=== PATIENT | male | born 1965 | race Caucasian/White ===

== ENCOUNTER → 2017-05-13 | Outpatient (CLI) | payer BC, OTHER ==
[~2017-05-13] MED LIST: ASPIRIN 81M81 MG/TA2 PO; B-12 500 MCG PO; BACTRIM DS 8001 TAB PO; BETIMOL 0.5% OPH5 ML OP; BETIMOL 2.5 ML2.5 M1 OU; BRILINTA90 MG PO; CANA300T PO; CEFTIN500 MG PO; CEPHALEXIN500 M1 PO; CRESTOR40 MG PO; DUO-KAPS1 CAP PO; FLEXERIL5 MG PO; FLOMAX 0.40.4 MG/CAP PO; GLUCOPHAGE XR500 M1 PO; GLUCOPHAGE1000 MG PO; GRALISE300 MG; LEVAQUIN 5500 MG/TA1 PO; LEVEMIR100 U/ML SQ; LOPRESSOR 550 MG/TAB PO; LUMIGAN 2.5 ML2.5 M1; MULTI VITAMINS1 TAB PO; NAPROXEN EC375 MG PO; NO HOME MEDICATIONS; NORCO 325 MG-51 TAB PO; PERCOCET 325 MG1 TA2 PO; PRAVACHOL10 MG; PYRIDIUM 100MG100 MG PO; PYRIDIUM200 M1 PO; SENOKOT S 50 MG1 TAB PO; VIT B 12; XALATAN EYE DROPS OU; ZOFRAN ODT4 MG PO; [UNRECOGNIZED DRUG - OTHER]
== END ==
LOC: COL.RAD 15:37
DX: R16.2 Hepatomegaly with splenomegaly, not elsewhere classified (principal); N20.0 Calculus of kidney

== ENCOUNTER → 2017-05-18 | Outpatient (CLI) | payer BC, OTHER ==
[2017-05-18 09:31] LABS: AMYLASE 48 U/L (30-110); ANION GAP 12 mmol/L (7-16); BLOOD UREA NITROGEN 11 mg/dL (9-20); CALCIUM 8.7 mg/dL (8.4-10.2); CARBON DIOXIDE 25 mmol/L (22-30); CHLORIDE 105 mmol/L (98-107); CREATININE, serum 0.66 mg/dL (0.66-1.25); GLUCOSE 178 mg/dL (74-106); LIPASE 47 U/L (23-300); POTASSIUM 4.4 mmol/L (3.4-5.0); SODIUM 141 mmol/L (137-145)
[2017-05-18 09:42] LABS: TROPONIN-I < 0.012 ng/mL (0.000-0.034)
[2017-05-18 23:19] LABS: CKMB-SO 1.7 ng/mL (0.0-7.2)
== END ==
LOC: COL.VAS 07:50
PROVIDERS: Family Medicine
DX: I65.23 Occlusion and stenosis of bilateral carotid arteries (principal); R89.9 Unspecified abnormal finding in specimens from other organs, systems and tissues

== ENCOUNTER 2017-08-07 09:10 | Day surgery (SDC) | payer BC, OTHER ==
[~2017-08-07] VITALS: Ht 172.7 cm; Wt 131.3 kg
[2017-08-07] VITALS (8 sets, daily range): BP systolic 118–135; BP diastolic 71–79; PULSE 57–66; TEMP 97.5
[2017-08-07 09:48] LABS: MEAN CELL VOLUME 77 fl (80.0-100.0); MEAN CORPUSCULAR HEMOGLOBIN 23 pg (27.0-31.0); MEAN CORPUSCULAR HGB CONC 30 g/dl (33.0-37.0); MEAN PLATELET VOLUME 11.1 fl (7.4-10.4); PLATELET COUNT 268 K/mm3 (130-400); RED BLOOD COUNT 4.81 M/mm3 (4.20-5.60); REDCELL DISTRIBUTION WIDTH-CV 14.7 % (11.5-14.5); WHITE BLOOD COUNT 4.6 K/mm3 (4.8-10.8)
[2017-08-07 09:50] LABS: HEMOGLOBIN 11.1 g/dl (13.5-18.0)
[2017-08-07 10:01] LABS: PROTHROMBIN TIME 11.2 SECONDS (9.7-12.8)
[2017-08-07] MEDS ORDERED: ASPIRIN 81M81 MG/TA2 PO (10:03)
[2017-08-07 10:15] LABS: CALCIUM 8.8 mg/dL (8.4-10.2); CREATININE, serum 0.64 mg/dL (0.66-1.25)
== END 2017-08-07 16:36 | disposition home or self-care (01) ==
LOC: COL.CAR 09:10
PROVIDERS: Internal Medicine Interventional Cardiology
DX: R07.9 Chest pain, unspecified (principal); R06.02 Shortness of breath; I10 Essential (primary) hypertension; E78.5 Hyperlipidemia, unspecified; Z79.4 Long term (current) use of insulin; E11.40 Type 2 diabetes mellitus with diabetic neuropathy, unspecified; Z83.3 Family history of diabetes mellitus; Z82.3 Family history of stroke; Z82.49 Family history of ischemic heart disease and other diseases of the circulatory system
CPT/HCPCS: C1760; C1894; J2250; J3010; Q9967

== ENCOUNTER 2019-11-05 19:16 | Inpatient (IN) | payer BC ==
[~2019-11-05] VITALS: Ht 177.8 cm; Wt 118.1 kg
[2019-11-05 21:04] LABS: BASO % 0.3 % (0.0-2.0); GRAN # 7.8 (1.4-6.5); GRAN % 81.2 % (42.2-75.2); HEMOGLOBIN 10.8 g/dl (13.5-18.0); LYMPH # 0.7 (1.2-3.4); LYMPH % 7.3 % (20.0-51.0); MEAN CELL VOLUME 80 fl (80.0-100.0); MEAN CORPUSCULAR HEMOGLOBIN 25 pg (27.0-31.0); MEAN CORPUSCULAR HGB CONC 31 g/dl (33.0-37.0); MEAN PLATELET VOLUME 10.5 fl (7.4-10.4); MONO # 1.1 (0.1-0.6); MONO % 10.9 % (1.7-9.3); PLATELET COUNT 238 K/mm3 (130-400); RED BLOOD COUNT 4.41 M/mm3 (4.20-5.60); REDCELL DISTRIBUTION WIDTH-CV 15.1 % (11.5-14.5)
[2019-11-05 21:12] LABS: HEMATOCRIT 35.1 % (42.0-52.0)
[2019-11-05 21:37] LABS: ALBUMIN 3.8 gm/dL (3.5-5.0); BILIRUBIN,TOTAL 0.5 mg/dL (0.0-1.0); CALCIUM 8.7 mg/dL (8.4-10.2); CREATININE, serum 1.16 (0.66-1.25); POTASSIUM 3.4 mmol/L (3.4-5.0); TOTAL PROTEIN 7.3 gm/dL (6.4-8.2)
[2019-11-05] MEDS ORDERED: TOUJEO300 U/ML SQ (22:25)
[2019-11-05] MEDS ORDERED: JARDIANCE25 (22:25)
[2019-11-05] MEDS ORDERED: PRINIVIL5 MG PO (22:26)
[2019-11-05] MEDS ORDERED: FLOMAX 0.40.4 MG/CAP PO (22:27)
[2019-11-05] MEDS ORDERED: VITAMIN B COMPL1 SGL PO (22:27)
[2019-11-05] MEDS ORDERED: MULTIPLE VITAMI1 CAP PO (22:28)
[2019-11-05] MEDS ORDERED: PROFERRIN ES12 MG (22:28)
[2019-11-05] MEDS ORDERED: MASON NATURAL1200 MG PO (22:28)
[2019-11-05] MEDS ORDERED: TRILIPIX45 MG PO (22:30)
[2019-11-05 23:09] LABS: COLLECTION METHOD CLEAN CATCH
[2019-11-05 23:19] LABS: MUCOUS Present /lpf; PH 5 (5-8); URINE APPEARANCE Clear; URINE BACTERIA None Seen /hpf; URINE BILIRUBIN Negative (NEGATIVE); URINE BLOOD Negative (NEGATIVE); URINE COLOR Yellow; URINE GLUCOSE 1+ (NEGATIVE); URINE KETONE 1+ (NEGATIVE); URINE LEUKOCYTE ESTERASE 1+ (NEGATIVE); URINE NITRATE Negative (NEGATIVE); URINE PROTEIN(semi-quant) 1+ (NEGATIVE)
[2019-11-05 23:30] VITALS: BP 128/60; PULSE 80; TEMP 99.6
[2019-11-06] VITALS (11 sets, daily range): BP systolic 107–144; BP diastolic 57–84; PULSE 65–83; TEMP 98.5–100.2
--- NOTE | 2019-11-06 01:24 | NUR ---
Patient to the floor at 2330. States pain is tolerable at this time and denies the need for pain medication. States pain is from left side to left back/flank area. IVF to RAC. Dr. Dooley called and notified about blood glucose level at 264. Intermediate Sliding Scale of Novolog ACHS with dose now ordered. Insulin given and education provided on hypoglycemic symptoms d/t patient being NPO. Patient verbalized understanding. at bedside during 5 page assessment, but has gone home for the evening. Patient states he has not taken any of his medications since . Temperature appears to be decreasing with Tylenol administration. Will continue to monitor patient.
--- NOTE | 2019-11-06 09:00 | NUR ---
Medicated with Morphine for pain with relief. NPO. Dr. Dooley saw patient.
--- NOTE | 2019-11-06 12:40 | NUR ---
No complaints. To surgery per bed with OR staff. Family here.
--- NOTE | 2019-11-06 13:02 | NUR ---
Plan: To return home with as care support. Assess: Patient reports that he resides locally with his Heidi and [facility] . Patient kye the use of any DME. Patient reports that he uses [facility] for Medications. Denies having a DPOA and has not concers. Patient declienes home health services. to assist with transport. Action: Patient indicating no concerns. Will continue to follow for care.
--- NOTE | 2019-11-06 14:00 | NUR ---
Returned to room from PACU per bed. No complaints. VSS. Lewis in place with clear yellow urine.
--- NOTE | 2019-11-06 18:45 | NUR ---
Sitting at side of bed without complaint. Afebrile. IV antibiotic infusing. Good urine output per catheter.
--- NOTE | 2019-11-06 21:57 | NUR ---
Pt doing well. Alert and oriented with VSS. Ambulatory in room. BS was 357 so sliding scale insulin given along with scheduled. Patient has de la rosa with clear yellow drainage. Pt denies pain at this time or other concerns. Call light within reach, will continue to monitor.
[2019-11-07] VITALS (7 sets, daily range): BP systolic 126–151; BP diastolic 77–87; PULSE 43–68; TEMP 97.5–98.6
--- NOTE | 2019-11-07 06:05 | NUR ---
pt has had uneventful night. no issues. bs is elevated but has insulin ss and scheduled insulin ordered for this am. denies pain or any issues. call light within reach, will continue to monitor.
--- NOTE | 2019-11-07 08:55 | NUR ---
PATIENT IS SITTING UP IN BED THIS MORNING. PATIENT IS A&OX4. VSS. BOWEL SOUNDS ACTIVE ALL FOUR QUADRANTS. PATIENT TOLERATING DIET WITHOUT COMPLAINTS OF N/V. LLE EDEMA NOTED. INT TO RIGHT AC. PATIENTS IZQUIERDO CATHETER DISCONTINUED PER ORDERS. 9 MLS OF STERILE WATER ASPIRATED FROM IZQUIERDO BALLOON. TIP INTACT. PATIENT TOLERATED WELL. PERICARE PROVIDED. CALL LIGHT WITHIN REACH. PATIENT DENIES ANY NEEDS AT THIS TIME.
--- NOTE | 2019-11-07 11:54 | NUR ---
PATIENT CALLED OUT STATING THAT HIS IV IS LEAKING. RIGHT AC INT DISCONTINUED. NEW 20G IV STARTED IN LEFT FOREARM. PATIENT TOLERATED WELL. DAUGHTER PRESENT AT THE BEDSIDE. PATIENT DENIES ANY NEEDS AT THIS TIME. CALL LIGHT WITHIN REACH.
[2019-11-07 11:57] LABS: GRAN # 6.2 (1.4-6.5); GRAN % 76.7 % (42.2-75.2); HEMOGLOBIN 10.1 g/dl (13.5-18.0); LYMPH % 12.4 % (20.0-51.0); MEAN CELL VOLUME 80 fl (80.0-100.0); MEAN CORPUSCULAR HEMOGLOBIN 24 pg (27.0-31.0); MEAN CORPUSCULAR HGB CONC 30 g/dl (33.0-37.0); MEAN PLATELET VOLUME 10.8 fl (7.4-10.4); MONO # 0.8 (0.1-0.6); MONO % 10.4 % (1.7-9.3); PLATELET COUNT 307 K/mm3 (130-400); RED BLOOD COUNT 4.18 M/mm3 (4.20-5.60); REDCELL DISTRIBUTION WIDTH-CV 15.3 % (11.5-14.5)
[2019-11-07 12:02] LABS: HEMATOCRIT 33.5 % (42.0-52.0)
[2019-11-07 12:20] LABS: ALBUMIN 3.6 gm/dL (3.5-5.0); BILIRUBIN,TOTAL 0.2 mg/dL (0.0-1.0); CALCIUM 8.9 mg/dL (8.4-10.2); CREATININE, serum 0.89 (0.66-1.25); POTASSIUM 3.8 mmol/L (3.4-5.0)
--- NOTE | 2019-11-07 12:20 | NUR ---
PATIENT VOIDED 325 MLS POST IZQUIERDO REMOVAL. PATIENT VOIDING SUFFICIENTLY WITHOUT DIFFICULTY AFTER IZQUIERDO REMOVAL. UA COLLECTED AND SENT TO LAB. CALL LIGHT WITHIN REACH. PATIENT DENIES ANY NEEDS AT THIS TIME.
[2019-11-07 12:24] LABS: ERYTHROCYTE SEDIMENTATION RATE 93 mm/hr (0-30)
[2019-11-07 12:34] LABS: C-REACTIVE PROTEIN 21.4 mg/dL (0.0-0.9)
--- NOTE | 2019-11-07 13:17 | NUR ---
Vancomycin Initial Dosing Pharmacy Note Ordering provider: Brooks Dooley MD Indication/duration: Staph bacteremia Relevant comorbidities: kidney stone LABS: SCr 0.89, CrCl~83, GFR 65 Recommendation: Will give Vancomcyin 1.5 gm IV q8h. Pharmacy will continue to monitor and check a Vancomycin trough on 11/08/19. Maintenance dose: 1.5 grams every 8 hours Trough goal: 15-20 ug/mL
--- NOTE | 2019-11-07 14:34 | NUR ---
PATIENT CONSENT FORM FOR TRANSESOPHAGEAL ECHOCARDIOGRAM SIGNED AND ON PATIENT CHART.
--- NOTE | 2019-11-07 19:18 | NUR ---
REPORT GIVEN TO SARAHY NICHOLSON.
--- NOTE | 2019-11-07 21:00 | NUR ---
Sitting at bedside. Assessment complete. Lungs clear. Heart sounds normal. Bowels active x4. Pulses present throughout. Left lower extremity edema +2. Right lower extremity +1. INT left forearm flushed without complications. Denies pain at this time. Urinated 350 ml of clear yellow urine. Denies needs. Call light in reach.
[2019-11-08] VITALS (9 sets, daily range): BP systolic 126–142; BP diastolic 74–79; PULSE 54–74; TEMP 98.1–98.5
--- NOTE | 2019-11-08 00:03 | NUR ---
Patient reports stomach discomft, rating at 6/10. Tried crackers prior to midnight. Offered and gave PRN zofran. Denies other needs at this time. Will monitor.
--- NOTE | 2019-11-08 04:45 | NUR ---
Reports 5/10 pain stomach pain. Patient currently NPO. Given IV morphine at this time.
--- NOTE | 2019-11-08 06:11 | NUR ---
Patient received x1 dose of morphine and x1 dose of zofran for "upset stomach" and "stomach pain." Otherwise uneventful night. Resting in bed this AM.
--- NOTE | 2019-11-08 07:21 | NUR ---
Report given to SARAHY Sanon
--- NOTE | 2019-11-08 07:45 | NUR ---
Dr Garcia here to see patient.
--- NOTE | 2019-11-08 09:10 | NUR ---
To [facility] for [facility] at this time.
--- NOTE | 2019-11-08 09:50 | NUR ---
Returns from [facility].
--- NOTE | 2019-11-08 10:00 | NUR ---
Patient alert and oriented, answers questions appropriately. See assessment. No c/o flank pain. C/o urinary burning, no frequency or hesitancy. Urine clear, continue to strain. No other c/o at this time.
--- NOTE | 2019-11-08 13:00 | NUR ---
Dr Smith here to see patient.
[2019-11-08 13:18] LABS: BASO % 0.3 % (0.0-2.0); EOS % 0.3 % (0-4.0); GRAN # 4.2 (1.4-6.5); GRAN % 71.9 % (42.2-75.2); LYMPH % 16.3 % (20.0-51.0); MEAN CELL VOLUME 80 fl (80.0-100.0); MEAN CORPUSCULAR HEMOGLOBIN 25 pg (27.0-31.0); MEAN CORPUSCULAR HGB CONC 31 g/dl (33.0-37.0); MEAN PLATELET VOLUME 11.2 fl (7.4-10.4); MONO # 0.6 (0.1-0.6); MONO % 10.7 % (1.7-9.3); PLATELET COUNT 333 K/mm3 (130-400); RED BLOOD COUNT 4.06 M/mm3 (4.20-5.60); REDCELL DISTRIBUTION WIDTH-CV 15.5 % (11.5-14.5)
[2019-11-08 13:22] LABS: HEMATOCRIT 32.5 % (42.0-52.0)
[2019-11-08 13:31] LABS: CALCIUM 8.2 mg/dL (8.4-10.2); CREATININE, serum 0.99 (0.66-1.25); POTASSIUM 3.4 mmol/L (3.4-5.0)
[2019-11-08 13:40] LABS: INR 1.1 (0.8-3.0); PROTHROMBIN TIME 12.8 SECONDS (9.7-12.8)
[2019-11-08] MEDS ORDERED: OMNICEF 300MG300 MG PO (14:22)
--- NOTE | 2019-11-08 15:31 | NUR ---
Discharge instructions reviewed with patient and spouse, verbalized understanding. Discharged via wheelchair to auto/home with family at 1525.
== END 2019-11-08 15:20 | disposition home or self-care (01) | DRG 854 ==
LOC: COL.ER 19:16 → SURG 22:13
PROVIDERS: Emergency Medicine; Nurse Practitioner Family; ADMIT Urology
PROC: 0T778DZ Dilation of Left Ureter with Intraluminal Device, Via Natural or Artificial Opening Endoscopic (ICD-10-PCS; principal; 2019-11-06 12:30)
DX: A41.9 Sepsis, unspecified organism (principal); N39.0 Urinary tract infection, site not specified; N20.1 Calculus of ureter; E66.9 Obesity, unspecified; I10 Essential (primary) hypertension; E11.9 Type 2 diabetes mellitus without complications; M19.90 Unspecified osteoarthritis, unspecified site; G89.29 Other chronic pain; B95.8 Unspecified staphylococcus as the cause of diseases classified elsewhere; D64.9 Anemia, unspecified; Z90.49 Acquired absence of other specified parts of digestive tract; Z79.82 Long term (current) use of aspirin; Z79.4 Long term (current) use of insulin; Z98.84 Bariatric surgery status
CPT/HCPCS: 99232-AI; A4314; C1769; C2617; J0690; J1100; J1170; J1815; J1885; J1956; J2270; J2405; J2543; J2704; J3010; J3370; J7030; J7050; Q9967

== ENCOUNTER 2019-11-22 06:33 | Day surgery (SDC) | payer BC ==
[~2019-11-22] VITALS: Ht 177.8 cm; Wt 120.9 kg
[~2019-11-22 06:33] MED LIST changes: +JARDIANCE25; +MASON NATURAL1200 MG PO; +MULTIPLE VITAMI1 CAP PO; +OMNICEF 300MG300 MG PO; +PRINIVIL5 MG PO; +PROFERRIN ES12 MG; +TOUJEO300 U/ML SQ; +TRILIPIX45 MG PO; +VITAMIN B COMPL1 SGL PO
[2019-11-22 07:15] VITALS: BP 151/78; PULSE 65; TEMP 97.4
[2019-11-22] MEDS ORDERED: TOUJEO300 U/ML SQ (07:25)
[2019-11-22] MEDS ORDERED: JARDIANCE25 PO (07:28)
--- NOTE | 2019-11-22 07:29 | NUR ---
TO RM AT 0649- CALL LIGHT IN REACH AT BEDSIDE
[2019-11-22 10:15] VITALS: BP 129/67; PULSE 58; TEMP 98
--- NOTE | 2019-11-22 10:15 | NUR ---
TO RM 8 PER CART FROM PACU. ALERT ORIENTED X3, TALKING WITH STAFF AND HIS . DRINKING WATER UPON ARRIVAL. AMBULATED TO BATHROOM WITH ASSIST AND VOIDED.
[2019-11-22 10:30] VITALS: BP 157/76; PULSE 65
--- NOTE | 2019-11-22 10:30 | NUR ---
RECEIVED MUFFIN AND SITTING UP TALKING TO .
[2019-11-22 10:45] VITALS: BP 151/78; PULSE 61
--- NOTE | 2019-11-22 10:45 | NUR ---
ATE 100% OPHELIA DENIES N/V C/O PAIN 2-01/23
--- NOTE | 2019-11-22 10:54 | NUR ---
LOWER LEGS CONTINUE TO BE RED WARM AND EDAMATOUS. ORDER PLACED FOR DOPPLER STUDIES
[2019-11-22 11:00] VITALS: BP 148/81; PULSE 58
--- NOTE | 2019-11-22 11:30 | NUR ---
AMBULATED WITH STAND BY ASSIST. VOIDED AND TOLERATED WELL.
[2019-11-22] MEDS ORDERED: NORCO 325 MG-51 TAB PO (11:35)
--- NOTE | 2019-11-22 11:50 | NUR ---
RECEIVED DISCHARGE INSTRUCTIONS AND VERBALIZED UNDERSTANDING
--- NOTE | 2019-11-22 12:00 | NUR ---
DISCHARGED PER WC BY NURSING STAFF TO PRIVATE CAR IN CARE OF -EMILY
== END 2019-11-22 12:00 | disposition home or self-care (01) ==
LOC: SDCO 06:33
DX: N20.1 Calculus of ureter (principal); Z87.440 Personal history of urinary (tract) infections; I10 Essential (primary) hypertension; Z79.82 Long term (current) use of aspirin; Z79.899 Other long term (current) drug therapy; E11.9 Type 2 diabetes mellitus without complications; Z79.4 Long term (current) use of insulin
CPT/HCPCS: C1769; C1894; C2617; J0690; J1100; J2405; J2704; J3010; J7120

== ENCOUNTER → 2019-12-02 | Outpatient (CLI) | payer BC ==
[~2019-12-02] MED LIST changes: +JARDIANCE25 PO
== END ==
LOC: COL.RAD 10:28
DX: N20.0 Calculus of kidney (principal)

== ENCOUNTER 2021-12-23 13:53 | Observation (INO) | payer BC ==
[~2021-12-23] VITALS: Ht 177.8 cm; Wt 134.0 kg
[2021-12-23 16:18] LABS: BASO % 0.6 % (0.0-2.0); EOS # 0.1 K/mm3 (0.0-0.7); EOS % 1.6 % (0.0-4.0); GRAN # 3.2 K/mm3 (1.4-6.5); GRAN % 63.8 % (42.2-75.2); HEMATOCRIT 39.4 % (42.0-52.0); HEMOGLOBIN 12.3 g/dl (13.5-18.0); LYMPH # 1.3 K/mm3 (1.2-3.4); MEAN CELL VOLUME 85 fl (80.0-100.0); MEAN CORPUSCULAR HEMOGLOBIN 27 pg (27-31); MEAN CORPUSCULAR HGB CONC 31 g/dl (33.0-37.0); MEAN PLATELET VOLUME 10.8 fl (7.4-10.4); MONO # 0.4 K/mm3 (0.1-0.6); MONO % 8.8 % (1.7-9.3); PLATELET COUNT 264 K/mm3 (130-400); RED BLOOD COUNT 4.63 M/mm3 (4.20-5.60)
[2021-12-23 16:27] LABS: PROTHROMBIN TIME 11.3 SECONDS (9.7-12.8)
[2021-12-23 16:36] LABS: ALBUMIN 3.9 gm/dL (3.5-5.0); BILIRUBIN,TOTAL 0.2 mg/dL (0.2-1.2); CALCIUM 8.6 mg/dL (8.4-10.2); CREATININE, serum 0.77 mg/dL (0.72-1.25); POTASSIUM 4.2 mmol/L (3.5-4.5); TOTAL PROTEIN 6.9 gm/dL (6.2-8.1)
[2021-12-23] MEDS ORDERED: PRINIVIL40 MG PO (19:02)
[2021-12-23] MEDS ORDERED: AMARYL 2MG T2 MG/TAB PO (19:02)
[2021-12-23] MEDS ORDERED: HCTZ 25MG TAB25 MG PO (19:03)
[2021-12-23] MEDS ORDERED: CRESTOR5 MG PO (19:03)
[2021-12-23] MEDS ORDERED: NORVASC 5MG5 MG/TAB PO (19:04)
[2021-12-23] MEDS ORDERED: FARXIGA5 PO (19:04)
[2021-12-23] MEDS ORDERED: TOUJEO300 U/ML SQ (19:06)
[2021-12-23] MEDS ORDERED: PROBIOTIC ACID1 EAC3 PO (19:07)
[2021-12-23] MEDS ORDERED: TUMS500 MG PO (19:08)
[2021-12-23 20:43] VITALS: BP 174/90; PULSE 57; TEMP 98.3
--- NOTE | 2021-12-23 21:00 | NUR ---
pt admitted from ED per WC, bedside swallow study done, no problems swallowing, pt asking for food, checked BGM 161, sandwich box given. pt reports feeling about 80% back to normal. no difficulty noted with finding words, answers questions appropriately, alert and oriented. 2 units of SS insulin given with meal. up ad selvin in room.
[2021-12-24] VITALS (7 sets, daily range): BP systolic 128–159; BP diastolic 62–89; PULSE 52–64; TEMP 97.6–98.5
[2021-12-24 06:53] LABS: BASO % 0.8 % (0.0-2.0); EOS # 0.1 K/mm3 (0.0-0.7); EOS % 3.3 % (0.0-4.0); GRAN # 1.8 K/mm3 (1.4-6.5); GRAN % 48.2 % (42.2-75.2); HEMATOCRIT 37.8 % (42.0-52.0); HEMOGLOBIN 11.6 g/dl (13.5-18.0); LYMPH # 1.3 K/mm3 (1.2-3.4); LYMPH % 36.2 % (20.0-51.0); MEAN CELL VOLUME 87 fl (80.0-100.0); MEAN CORPUSCULAR HEMOGLOBIN 27 pg (27-31); MEAN CORPUSCULAR HGB CONC 31 g/dl (33.0-37.0); MEAN PLATELET VOLUME 11.8 fl (7.4-10.4); MONO # 0.4 K/mm3 (0.1-0.6); MONO % 11.5 % (1.7-9.3); PLATELET COUNT 245 K/mm3 (130-400); RED BLOOD COUNT 4.33 M/mm3 (4.20-5.60); REDCELL DISTRIBUTION WIDTH-CV 15.1 % (11.5-14.5)
[2021-12-24 07:05] LABS: CALCIUM 8.3 mg/dL (8.4-10.2); CHOLESTEROL RISK RATIO 3.7; CREATININE, serum 0.75 mg/dL (0.72-1.25); POTASSIUM 4.1 mmol/L (3.5-4.5)
--- NOTE | 2021-12-24 07:16 | NUR ---
patient going down for MRI at this time
--- NOTE | 2021-12-24 08:31 | NUR ---
Assessment completed, alert/oriented, vital signs stable, denies any pain or discomfort, denies any issues overnight, denies any further neuro episodes of speech impairmed or feeling altered like what brought him in to the ER, heart regular/ slightly bradycardic in the 50's/ denies feeling lightheaded or dizzy, SB on tele, distal pulses are palpable, lungs CTA/ no resp.difficulty, blood sugars are controlled, he has had his MRI brain this morning and they are now getting ready to do his ECHO, he denies other needs, in the room
--- NOTE | 2021-12-24 10:59 | NUR ---
Initial visit; Patient and his thanked Concert Manager for looking in on [place] and offering God's blessings and keeping him in Concert Manager's prayers.
--- NOTE | 2021-12-24 11:26 | NUR ---
CLINTON met with the patient and his , Heidi (ph#[phone]), to discuss discharge plan. The patient lives in [place] with his . He reports independence with ADLs and does not have any DME. The patient states that his PCP was Dr. Lora, but that Dr. Lora left [facility]. He states that he has not seen a new provider since. CLINTON informed the patient how Dr. Lora moved to [facility] in [place]. The patient verbalized understanding. He would like some time to figure out if he wants to stay with [facility] or try and see if Dr. Lora would take him at [facility]. He receives his medications at [facility] and he reports no difficulties obtaining his meds. The patient does not have a DPOA-HC, but he was interested in completing one while here. CLINTON provided the form. The patient designated his and his daughter, uXan Cat, as the alternate. CLINTON and RUDY Matt, witnessed the patient's signature. CLINTON provided the patient with the original and some copies. CLINTON placed a copy in the patient's chart. The patient plans on returning home with his upon discharge. PT notified CLINTON that the patient could benefit from outpatient PT, if interested. Otherwise, PT would recommend home. CLINTON addressed this with the patient. The patient and his declined outpatient PT at this time. No additional needs at this time. *Discharge plan: home with *
--- NOTE | 2021-12-24 21:30 | NUR ---
PT AWAKE, TAKES SCHEDULED HS MEDS. EDEMA TO LLE MORE SIGNIFICANT THAN RIGHT, HX DVT. INT TO LEFT FOREARM, FLUSHES WELL.
[2021-12-25 03:36] VITALS: BP 122/71; PULSE 58; TEMP 98.8
--- NOTE | 2021-12-25 06:00 | NUR ---
NO ISSUES DURING THE NIGHT. INT TO LEFT FOREARM INTACT. TELEMETRY SHOWED SB IN UPPER 40'S AT TIMES DURING THE NIGHT.
[2021-12-25 06:49] LABS: BASO # 0.1 K/mm3 (0.0-0.2); EOS # 0.1 K/mm3 (0.0-0.7); GRAN # 2.9 K/mm3 (1.4-6.5); GRAN % 57.9 % (42.2-75.2); HEMATOCRIT 40.8 % (42.0-52.0); LYMPH # 1.4 K/mm3 (1.2-3.4); LYMPH % 27.8 % (20.0-51.0); MEAN CELL VOLUME 83 fl (80.0-100.0); MEAN CORPUSCULAR HEMOGLOBIN 27 pg (27-31); MEAN CORPUSCULAR HGB CONC 32 g/dl (33.0-37.0); MEAN PLATELET VOLUME 11.3 fl (7.4-10.4); MONO # 0.6 K/mm3 (0.1-0.6); MONO % 11.1 % (1.7-9.3); PLATELET COUNT 254 K/mm3 (130-400); REDCELL DISTRIBUTION WIDTH-CV 14.9 % (11.5-14.5)
[2021-12-25 06:58] LABS: CALCIUM 8.8 mg/dL (8.4-10.2); CREATININE, serum 0.81 mg/dL (0.72-1.25); POTASSIUM 3.6 mmol/L (3.5-4.5)
[2021-12-25] MEDS ORDERED: LIPITOR 80MG80 MG PO (07:13)
[2021-12-25] MEDS ORDERED: PLAVIX 75MG TAB75 MG PO (07:14)
[2021-12-25] MEDS ORDERED: LASIX 20MG TABL20 MG PO (07:14)
[2021-12-25 07:40] VITALS: BP 130/65; PULSE 65; TEMP 98.3
[2021-12-25 11:29] VITALS: BP 149/70; PULSE 63; TEMP 97.8
--- NOTE | 2021-12-25 16:46 | NUR ---
PT MET CRITERIA FOR DISCHARGE, VSS. LOOP RECORDER PLACED THIS AFTERNOON, PT DENIES PAIN. IV REMOVED WITHOUT COMPLICATIONS, CATHETER INTACT. DISCHARGE INSTRUCTIONS REVIEWED, PT VERBALIZED UNDERSTANDING. PT AWARE OF F/U APPT AND PRESCRIPTIONS TO [employer] OPERATOR. PT DC TO HOME VIA WHEELCHAIR ACCOMPANIED BY SHELL TRIM OPERATOR.
== END 2021-12-25 16:50 | disposition home or self-care (01) ==
LOC: COL.ER 13:53 → SURG 18:20
PROVIDERS: Personal Emergency Response Attendant; Physician Assistant; Student in an Organized Health Care Education/Training Program; ADMIT Internal Medicine
DX: G45.9 Transient cerebral ischemic attack, unspecified (principal); R47.01 Aphasia; R00.1 Bradycardia, unspecified; M79.89 Other specified soft tissue disorders; E11.9 Type 2 diabetes mellitus without complications; I10 Essential (primary) hypertension; I44.0 Atrioventricular block, first degree; H40.9 Unspecified glaucoma; E66.01 Morbid (severe) obesity due to excess calories; Z98.84 Bariatric surgery status; E78.5 Hyperlipidemia, unspecified; R60.0 Localized edema; E78.00 Pure hypercholesterolemia, unspecified; E78.2 Mixed hyperlipidemia; Z79.82 Long term (current) use of aspirin; Z86.718 Personal history of other venous thrombosis and embolism; Z79.899 Other long term (current) drug therapy; Z68.41 Body mass index [BMI] 40.0-44.9, adult; Z82.3 Family history of stroke
CPT/HCPCS: A9575; C1764; G0378; J1815; J1940; Q9967

== ENCOUNTER 2022-11-21 16:54 | Inpatient (IN) | payer BC ==
[~2022-11-21] VITALS: Ht 154.9 cm; Wt 125.3 kg
[~2022-11-21 16:54] MED LIST changes: +AMARYL 2MG T2 MG/TAB PO; +CRESTOR5 MG PO; +FARXIGA5 PO; +HCTZ 25MG TAB25 MG PO; +LASIX 20MG TABL20 MG PO; +LIPITOR 80MG80 MG PO; -MULTIPLE VITAMI1 CAP PO; +MULTIPLE VITAMI1 TA5 PO; +NORVASC 5MG5 MG/TAB PO; +PLAVIX 75MG TAB75 MG PO; +PRINIVIL40 MG PO; +PROBIOTIC ACID1 EAC3 PO; +TUMS500 MG PO
[2022-11-21 17:46] LABS: BASO # 0.1 K/mm3 (0.0-0.2); BASO % 0.8 % (0.0-2.0); EOS # 0.1 K/mm3 (0.0-0.7); EOS % 0.8 % (0.0-4.0); GRAN # 3.7 K/mm3 (1.4-6.5); GRAN % 60.4 % (42.2-75.2); HEMATOCRIT 41.4 % (42.0-52.0); HEMOGLOBIN 12.1 g/dl (13.5-18.0); LYMPH # 1.6 K/mm3 (1.2-3.4); LYMPH % 26.1 % (20.0-51.0); MEAN CELL VOLUME 75 fl (80.0-100.0); MEAN CORPUSCULAR HEMOGLOBIN 22 pg (27-31); MEAN CORPUSCULAR HGB CONC 29 g/dl (33.0-37.0); MEAN PLATELET VOLUME 10.5 fl (7.4-10.4); MONO # 0.7 K/mm3 (0.1-0.6); MONO % 11.7 % (1.7-9.3); PLATELET COUNT 341 K/mm3 (130-400); RED BLOOD COUNT 5.56 M/mm3 (4.20-5.60); REDCELL DISTRIBUTION WIDTH-CV 16.7 % (11.5-14.5)
[2022-11-21 17:57] LABS: PROTHROMBIN TIME 11.1 SECONDS (9.7-12.8)
[2022-11-21 18:03] LABS: ALBUMIN 4.4 gm/dL (3.5-5.0); BILIRUBIN,TOTAL 0.3 mg/dL (0.2-1.2); CALCIUM 9.4 mg/dL (8.4-10.2); CREATININE, serum 1.06 mg/dL (0.72-1.25)
[2022-11-21 18:08] LABS: TROPONIN-I 0.02 ng/mL (0.00-0.033)
[2022-11-21] MEDS ORDERED: KLOR-CON SPRIN10 MEQ PO (20:27)
[2022-11-21 20:45] VITALS: BP 140/74; PULSE 63; TEMP 97.9
[2022-11-21] MEDS ORDERED: K-DUR 10 MEQ T10 MEQ PO (20:58)
[2022-11-21] MEDS ORDERED: PROAIR HFA0.09 MG/AC IH (20:59)
[2022-11-21 21:00] VITALS: PULSE 63; TEMP 97.9
--- NOTE | 2022-11-21 21:32 | NUR ---
PATIENT UP TO ROOM 348. ALERT AND ORIENTED. MED RX COMPLETED. SEE ASSESSMENT. C/O MINIMAL ACHING TO CHEST BUT DENIES PAIN, "MORE LIKE SORENESS." L AC PATENT AND FLUSHES EASILY. TELE IN PLACE. HS MEDS PER EMAR. DENIES ADDITIONAL NEEDS. CALL LIGHT IN REACH.
[2022-11-22] VITALS (10 sets, daily range): BP systolic 111–144; BP diastolic 55–75; PULSE 56–71; TEMP 97.6–98.5
--- NOTE | 2022-11-22 10:22 | NUR ---
Genesis: No judaism preference Situation: director retail brand development went by room on rounds Background: Pt was resting and content Assessment: pt has no needs right now. Recommendation: director retail brand development will follow up as needed
--- NOTE | 2022-11-22 16:30 | NUR ---
SW met with patient to complete intake. Patient states he lives in [facility] with his Heidi Cat [phone] who is also is DPOA/HC. Patient does not utilize DME, is independent with ADL's, and does not utilize HH services at this time. PCP is Dr. Shin, and pharmacy is [facility]. Patient provides he plans to return to his home upon DC. SW will continue to follow. DC plan:home
--- NOTE | 2022-11-22 18:46 | NUR ---
PATIENT ALERT AND ORIENTED X4. ON CARDIAC DIET NOW. TOOK PILLS WELL THIS MORNING. NO NEW CONCERNS.
--- NOTE | 2022-11-22 20:31 | NUR ---
SHIFT REPORT FROM GEORGINA WEATHERS. PATIENT IN BED ON ROOM ENTRY. DENIES PAIN. HS MEDS PER EMAR. L AC IV FLUSHS EASILY. REMAINS ON ROOM AIR. NO ADDITIONAL NEEDS AT THIS TIME. CALL LIGHT IN REACH.
[2022-11-23] VITALS (15 sets, daily range): BP systolic 70–126; BP diastolic 31–63; PULSE 57–68; TEMP 96–98.4
[2022-11-23 06:57] LABS: HEMATOCRIT 41.8 % (42.0-52.0); HEMOGLOBIN 11.9 g/dl (13.5-18.0); MEAN CELL VOLUME 76 fl (80.0-100.0); MEAN CORPUSCULAR HEMOGLOBIN 22 pg (27-31); MEAN CORPUSCULAR HGB CONC 29 g/dl (33.0-37.0); MEAN PLATELET VOLUME 10.9 fl (7.4-10.4); PLATELET COUNT 271 K/mm3 (130-400); REDCELL DISTRIBUTION WIDTH-CV 16.4 % (11.5-14.5)
[2022-11-23 07:07] LABS: CALCIUM 9.1 mg/dL (8.4-10.2); CREATININE, serum 0.84 mg/dL (0.72-1.25); POTASSIUM 3.8 mmol/L (3.5-4.5)
--- NOTE | 2022-11-23 17:44 | NUR ---
PATIENT COMPLAINED OF CHEST PAIN THIS AFTERNOON. 1 NITRO GIVEN AND PATIENTS PAIN WAS RELEIVED BUT FELT LIGHT HEADED AND HAD A HEADACHE. BLOOD PRESSURE WAS LOW, 77/37. DR BOX NOTIFIED AND ORDERED FOR PATIENT TO LAY IN BED AND WILL HAVE A HEART CATH TOMORROW. BLOOD PRESSURE INCREASED 30 MINUTES AFTER GETTING NITRO. AROUND 1600 PATIENT BLOOD PRESSURE WAS LOW AGAIN AND PATIENT WAS LIGHT HEADED AND DIZZY. DR CORTES NOTIFIED AND ORDERED 250ML BOLUS. BLOOD PRESSURE WAS STILL LOW AFTER BOLUS AND PATIENT WAS STILL SYMPTOMATIC. 500ML BOLUS ORDERED. BLOOD PRESSURE 93/56 AFTER BOLUS. PATIENT BLOOD PRESSURE BEING TAKEN EVERY 15 MINUTES. ORDERS TO TAKE BP EVERY [address] AND TO CALL DR CORTES IF BLOOD PRESSURE DROPS AGAIN.
[2022-11-23 21:19] LABS: COLLECTION METHOD CLEAN CATCH
[2022-11-23 21:31] LABS: MUCOUS Present (NOT PRESENT); SQUAMOUS EPITHELIAL 0-2 /hpf (0-10); URINE BACTERIA Rare /hpf (NONE SEEN); URINE COLOR Yellow (YELLOW); URINE RBC None Seen /hpf (0-2)
[2022-11-23 21:32] LABS: URINE APPEARANCE Hazy (CLEAR/HAZY); URINE BLOOD Negative (NEGATIVE); URINE GLUCOSE 2+ (NEGATIVE); URINE KETONE Negative (NEGATIVE); URINE NITRATE Negative (NEGATIVE); URINE PROTEIN(semi-quant) Negative (NEGATIVE); URINE UROBILINOGEN 0.2 (NEGATIVE)
[2022-11-24] VITALS (17 sets, daily range): BP systolic 106–145; BP diastolic 52–80; PULSE 55–74; TEMP 97.9–98.8
[2022-11-24 06:34] LABS: BASO % 0.5 % (0.0-2.0); EOS # 0.1 K/mm3 (0.0-0.7); GRAN % 53.2 % (42.2-75.2); HEMATOCRIT 40.8 % (42.0-52.0); HEMOGLOBIN 11.6 g/dl (13.5-18.0); LYMPH # 1.9 K/mm3 (1.2-3.4); LYMPH % 33.5 % (20.0-51.0); MEAN CELL VOLUME 76 fl (80.0-100.0); MEAN CORPUSCULAR HEMOGLOBIN 22 pg (27-31); MEAN CORPUSCULAR HGB CONC 28 g/dl (33.0-37.0); MEAN PLATELET VOLUME 10.5 fl (7.4-10.4); MONO # 0.6 K/mm3 (0.1-0.6); MONO % 10.6 % (1.7-9.3); PLATELET COUNT 272 K/mm3 (130-400); RED BLOOD COUNT 5.38 M/mm3 (4.20-5.60); REDCELL DISTRIBUTION WIDTH-CV 16.4 % (11.5-14.5)
[2022-11-24 06:52] LABS: CALCIUM 8.9 mg/dL (8.4-10.2); CREATININE, serum 0.82 mg/dL (0.72-1.25); POTASSIUM 3.6 mmol/L (3.5-4.5)
[2022-11-24 07:27] LABS: MAGNESIUM 2.6 mg/dL (1.6-2.6)
--- NOTE | 2022-11-24 09:00 | NUR ---
Pt doing well at this time, no complaints of pain. Aware that he is NPO for heart cath. No needs, will continue to monitor
--- NOTE | 2022-11-24 10:27 | NUR ---
Consent signed for heart cath. Pt continues to do well, no questions. Will continue to monitor
--- NOTE | 2022-11-24 14:40 | NUR ---
SEE MERGE FOR BASELINE ETCO2. SEE MERGE FOR ALL VITALS, ETCO2, MEDICATION ADMIN AND INTERVENTIONS.
--- NOTE | 2022-11-24 14:46 | NUR ---
computer lab aide here to get pt
--- NOTE | 2022-11-24 16:00 | NUR ---
Pt back from laborer cheesemaking. He is alert and oriented, no complaints of pain. Radial band to right wrist, site CDI. Pt daughter is at the bedside. Discussed post heart cath orders. Pt looking over menu at this time to order something to eat. No other needs, will continue to monitor
--- NOTE | 2022-11-24 17:45 | NUR ---
3ml removed from radial band. Pt was resting with eyes closed, woke pt for this. VSS. at bedside at this time
--- NOTE | 2022-11-24 20:52 | NUR ---
1999- REMOVED 2CC OF AIR FROM RADIAL ART BAND, NO BLEEDING NOTED. 2019-NO BLEEDING NOTED, REMOVED ANOTHER 3CC OF AIR FROM BAND. 2029-NO BLEEDING NOTED, REMOVED REMAINDER OF AIR, APPROX. 5CC 2034-BAND REMOVED, NO BLEEDING NOTED, BANDAID APPLIED TO SITE.
== END 2022-11-24 21:35 | disposition home or self-care (01) | DRG 287 ==
LOC: COL.ER 16:54 → SURG 18:47
PROVIDERS: Emergency Medicine; Internal Medicine; Physician Assistant; ADMIT Internal Medicine
PROC: 4A023N7 Measurement of Cardiac Sampling and Pressure, Left Heart, Percutaneous Approach (ICD-10-PCS; principal; 2022-11-24)
PROC: B2111ZZ Fluoroscopy of Multiple Coronary Arteries using Low Osmolar Contrast (ICD-10-PCS; 2022-11-24)
DX: R07.9 Chest pain, unspecified (principal); Z68.41 Body mass index [BMI] 40.0-44.9, adult; E11.9 Type 2 diabetes mellitus without complications; I10 Essential (primary) hypertension; I95.9 Hypotension, unspecified; H40.9 Unspecified glaucoma; Z98.84 Bariatric surgery status; E78.5 Hyperlipidemia, unspecified; R60.0 Localized edema; N20.0 Calculus of kidney; E66.01 Morbid (severe) obesity due to excess calories; Z86.718 Personal history of other venous thrombosis and embolism; Z86.73 Personal history of transient ischemic attack (TIA), and cerebral infarction without residual deficits; Z79.4 Long term (current) use of insulin; Z79.82 Long term (current) use of aspirin; Z79.84 Long term (current) use of oral hypoglycemic drugs; Z79.899 Other long term (current) drug therapy; Z79.02 Long term (current) use of antithrombotics/antiplatelets
CPT/HCPCS: A9270; G0378; J1644; J1650; J1815; J2250; J3010; J7040; J7050; Q9967

== ENCOUNTER → 2022-12-16 | Outpatient (CLI) | payer BC ==
[~2022-12-16] MED LIST changes: +K-DUR 10 MEQ T10 MEQ PO; +KLOR-CON SPRIN10 MEQ PO; +MULTIPLE VITAMI1 CAP PO; -MULTIPLE VITAMI1 TA5 PO; +PROAIR HFA0.09 MG/AC IH
== END ==
LOC: COL.RAD 12:23
DX: M47.816 Spondylosis without myelopathy or radiculopathy, lumbar region (principal); M51.36 Other intervertebral disc degeneration, lumbar region; G45.9 Transient cerebral ischemic attack, unspecified; I10 Essential (primary) hypertension; E11.42 Type 2 diabetes mellitus with diabetic polyneuropathy; E66.09 Other obesity due to excess calories; R20.2 Paresthesia of skin; Z79.4 Long term (current) use of insulin; Z68.32 Body mass index [BMI] 32.0-32.9, adult

== ENCOUNTER 2023-01-16 07:09 | Day surgery (SDC) | payer BC ==
[~2023-01-16] VITALS: Ht 177.8 cm; Wt 131.2 kg
[~2023-01-16 07:09] MED LIST changes: -MULTIPLE VITAMI1 CAP PO; +MULTIPLE VITAMI1 TA5 PO
[2023-01-16 07:28] VITALS: BP 156/86; PULSE 62; TEMP 97.7
[2023-01-16] MEDS ORDERED: AMARYL 2MG T2 MG/TAB PO (07:33)
[2023-01-16] MEDS ORDERED: PRINIVIL20 MG PO (07:35)
[2023-01-16 08:55] VITALS: BP 123/76; PULSE 62; TEMP 97
[2023-01-16 09:10] VITALS: BP 134/78; PULSE 68
[2023-01-16 09:25] VITALS: BP 156/84; PULSE 72
--- NOTE | 2023-01-16 13:03 | NUR ---
0838 PT BACK TO [facility] FROM [facility], ASSISTED TO CHAIR WITH 2 PERSON ASSIST, STABLE GAIT, L&O, NAD. PLACED ON MONITOR - VSS ON RA. SPOUSE IN ROOM. RECIEVED REPORT AND ASSUMED CAARE FROM LANNY WEATHERS. PROVIDED JUICE AND MUFFIN PER REQUEST, TOLERATING WELL
--- NOTE | 2023-01-16 17:05 | NUR ---
0685 - 9551 PT TO RECOVERY BAY FROM ENDO MATT VIA CART, S/P EGD WITH BIOPSY, COLONOSCOPY WITH POLYPECTOMY, L&O, NAD, DENIES COMPLAINT. AMBULATED STEADILY TO CHAIR WITH 2-PERSON ASSIST. PLACED ON MONITOR, VSS ON RA. PROVIDED JUICE AND MUFFIN PER REQUEST, TOLERATED WELL. IN ROOM. DR BROOKS TO SPEAK WITH PT/FAMILY. CLIFFORD Bernstein/Noel'IRIS Bernstein REVIEWED AND HANDED TO PT, ALL QUESTIONS/CONCERNS ADDRESSED TO PT SATISFACTION. VSS ON RA AND NAD THRU OUT STAY, CONTINUES TO DENY COMPLAINT. TAKEN TO EXIT VIA WC WITH ALL BELONGINGS AND PAPERWORK, ASSISTED INTO PASSENGER SEAT OF POV, DRIVING HOME.
== END 2023-01-16 09:40 | disposition home or self-care (01) ==
LOC: SDCO 07:09
DX: Z12.11 Encounter for screening for malignant neoplasm of colon (principal); K63.5 Polyp of colon; K29.50 Unspecified chronic gastritis without bleeding; R07.89 Other chest pain; K31.89 Other diseases of stomach and duodenum; D50.9 Iron deficiency anemia, unspecified; E11.9 Type 2 diabetes mellitus without complications; Z79.899 Other long term (current) drug therapy; Z98.84 Bariatric surgery status; Z79.84 Long term (current) use of oral hypoglycemic drugs
CPT/HCPCS: J2704; J7120

== ENCOUNTER → 2023-12-12 | Outpatient (CLI) | payer BC ==
[~2023-12-12] MED LIST changes: +B-121000 MCG PO; +NOVOLOG 100U100 U/M1 SQ; +PRINIVIL10 MG PO; +PROFE180 MG PO
[2023-12-12 15:32] LABS: BASO % 0.5 % (0.0-2.0); EOS # 0.1 K/mm3 (0.0-0.7); EOS % 1.2 % (0.0-4.0); GRAN % 67.8 % (42.2-75.2); HEMATOCRIT 40.6 % (42.0-52.0); HEMOGLOBIN 13.6 g/dl (13.5-18.0); LYMPH % 22.4 % (20.0-51.0); MEAN CELL VOLUME 95 fl (80.0-100.0); MEAN CORPUSCULAR HEMOGLOBIN 32 pg (27-31); MEAN CORPUSCULAR HGB CONC 34 g/dl (33.0-37.0); MEAN PLATELET VOLUME 10.9 fl (7.4-10.4); MONO # 0.4 K/mm3 (0.1-0.6); MONO % 8.1 % (1.7-9.3); PLATELET COUNT 212 K/mm3 (130-400); RED BLOOD COUNT 4.28 M/mm3 (4.20-5.60); REDCELL DISTRIBUTION WIDTH-CV 12.9 % (11.5-14.5)
[2023-12-12 15:44] LABS: ALBUMIN 3.9 gm/dL (3.5-5.0); BILIRUBIN,TOTAL 0.3 mg/dL (0.2-1.2); CALCIUM 9.1 mg/dL (8.4-10.2); CREATININE, serum 0.85 mg/dL (0.72-1.25); POTASSIUM 4.5 mmol/L (3.5-4.5)
== END ==
LOC: COL.LAB 14:50
PROVIDERS: Physician Assistant
DX: D50.9 Iron deficiency anemia, unspecified (principal); R63.5 Abnormal weight gain; R60.0 Localized edema; R06.09 Other forms of dyspnea

== ENCOUNTER → 2023-12-23 | Outpatient (CLI) | payer BC ==
[2023-12-23 15:08] LABS: ALBUMIN 4.5 gm/dL (3.5-5.0); BILIRUBIN,TOTAL 0.9 mg/dL (0.2-1.2); CALCIUM 9.3 mg/dL (8.4-10.2); CREATININE, serum 1.72 mg/dL (0.72-1.25); POTASSIUM 4.7 mmol/L (3.5-4.5); TOTAL PROTEIN 7.9 gm/dL (6.2-8.1)
== END ==
LOC: COL.LAB 12:14
PROVIDERS: Physician Assistant
DX: R42 Dizziness and giddiness (principal); T50.2X5A Adverse effect of carbonic-anhydrase inhibitors, benzothiadiazides and other diuretics, initial encounter

== ENCOUNTER → 2024-01-20 | Outpatient (CLI) | payer BC ==
[2024-01-20 15:51] LABS: HEMATOCRIT 42.5 % (42.0-52.0); HEMOGLOBIN 14.6 g/dl (13.5-18.0); MEAN CELL VOLUME 93 fl (80.0-100.0); MEAN CORPUSCULAR HEMOGLOBIN 32 pg (27-31); MEAN CORPUSCULAR HGB CONC 34 g/dl (33.0-37.0); MEAN PLATELET VOLUME 12.5 fl (7.4-10.4); PLATELET COUNT 200 K/mm3 (130-400); RED BLOOD COUNT 4.59 M/mm3 (4.20-5.60)
[2024-01-20 16:09] LABS: ALBUMIN 4.5 gm/dL (3.5-5.0); BILIRUBIN,TOTAL 0.8 mg/dL (0.2-1.2); CALCIUM 9.8 mg/dL (8.4-10.2); CREATININE, serum 1.93 mg/dL (0.72-1.25); POTASSIUM 4.4 mmol/L (3.5-4.5); TOTAL PROTEIN 7.5 gm/dL (6.2-8.1)
== END ==
LOC: COL.LAB 14:41
PROVIDERS: Physician Assistant
DX: R42 Dizziness and giddiness (principal)